=== PATIENT | female | born 1995 | race Caucasian/White ===

== ENCOUNTER → 2017-12-26 12:15 | Observation (INO) ==
--- NOTE | 2017-12-26 10:58 | OB/GYN Progress Note ---
Date of Encounter: 12/26/17 Time of Encounter: 10:55 - Assessment and Plan (1) 34 weeks gestation of Current Visit: Yes Status: Acute UA - Steroids - repeat in 24 hours NST - reactive, no ctx Discharge home with PTL precautions. Follow up in 24 hours for second dose steroids Follow up in office with routine care and PRN POC per consult with Dr Duarte Subjective - Subjective Principal diagnosis: labor evaluation Interval history: Ms Oliveros is a at 34 weeks and 1 day that presents to triage from the office that c/o "feeling her baby's head during a vaginal cleaning" and "increased vaginal discharge". She states positive movement. She denies headache, vision changes, epigastric pain, and vaginal bleeding. Antepartum ROS: movement normal, no vaginal bleeding, no contractions Objective - Vital Signs Vital Signs: Intake and Output 12/25/17 12/26/17 12/26/17 23:59 07:59 15:59 Other: Weight 74.1 kg Patient Weight 12/26/17 23:59 Weight 74.1 kg - Exam FHR: auscultation normal, category 1 (FHTs 155; appropriate for gestation.) Auscultation: bilateral: normal Abdomen: Present: normal appearance, soft, gravid Uterus: Present: normal. Absent: firm, tenderness Cervical dilation: 3-4 Cervix effacement: 70 station: -1
[2017-12-26 11:23] LABS: Bilirubin,Urine Negative (Negative); Blood,Urine Negative (Negative); Clarity,Urine Cloudy (Clear); Color,Urine Yellow (Yellow); Glucose,Urine (UA) Normal (Normal); Ketones,Urine Negative (Negative); Leukocyte Esterase,Urine Moderate (Negative); Nitrite,Urine Negative (Negative); Protein,Urine Negative (Neg-Trace); Specific Gravity,Urine 1.016 (1.010-1.025); Urobilinogen,Urine Normal (Normal)
[2017-12-26 11:25] LABS: Bacteria,Urine None Seen per hpf (None-Few); Hyaline Casts,Urine None Seen per lpf (None-Few); RBC,Urine 0-3 per hpf (0-3); Squamous Epithelial Cell,Urine Many per lpf (None-Few)
[2017-12-26 11:34] LABS: Amphetamine Screen,Urine Negative ng/mL (Cutoff=1000); Barbiturate Screen,Urine Negative ng/mL (Cutoff=200); Benzodiazepines Screen,Urine Negative ng/mL (Cutoff=200); Cannabinoid Screen,Urine Negative ng/mL (Cutoff = 50); Cocaine Screen,Urine Negative ng/mL (Cutoff= 300); Opiate Screen,Urine Negative ng/mL (Cutoff=300); Phencyclidine Screen,Urine Negative ng/mL (Cutoff=25)
[~2017-12-26 12:15] MED LIST: Betamethasone Acet/SodPhos 6 MG/ML MDV IM SCH; Ringers Solution, Lactated 1,000 ML IVC SCH
== END | disposition home or self-care (01) ==
LOC: 1NENULAB
PROVIDERS: ADMIT Obstetrics & Gynecology; ATTEND Obstetrics & Gynecology

== ENCOUNTER 2017-12-29 21:20 | Observation (INO) ==
[2017-12-29] MEDS ORDERED: Ringers Solution, Lactated 1,000 ML ONE (21:31)
[2017-12-29 21:38] LABS: Bilirubin,Urine Negative (Negative); Blood,Urine Negative (Negative); Clarity,Urine Cloudy (Clear); Color,Urine Yellow (Yellow); Glucose,Urine (UA) Normal (Normal); Ketones,Urine Trace mg/dL (Negative); Leukocyte Esterase,Urine Small (Negative); Nitrite,Urine Negative (Negative); PH,Urine 7.5 pH Units (5.0-8.0); Protein,Urine Negative (Neg-Trace); Specific Gravity,Urine 1.017 (1.010-1.025); Urobilinogen,Urine Normal (Normal)
[2017-12-29 21:39] LABS: Bacteria,Urine Few per hpf (None-Few); Hyaline Casts,Urine None Seen per lpf (None-Few); RBC,Urine 0-3 per hpf (0-3); Squamous Epithelial Cell,Urine Many per lpf (None-Few)
--- NOTE | 2017-12-29 21:42 | OB/GYN History & Physical ---
Date of Encounter: 12/29/17 Time of Encounter: 21:36 Assessment and Plan (1) 35 weeks gestation of Current visit: Yes Status: Acute IV fluids Monitor until morning for cervical change If cervix changes to >/= 6cm, admit for labor GBS unknown start clindamycin if admitted for labor POC per consult with Dr Tai (2) labor in second trimester Current visit: Yes Status: Acute Qualifiers: labor delivery status: without delivery Qualified Code(s): O60.02 - labor without delivery, second trimester History of Present Illness Chief complaint: vaginal pressure HPI: Ms. Oliveros is a 22 year old is a at 35 weeks 0 days that presents to triage with c/o increased vaginal pressure and abdominal pain. She states positive movement. She denies headaches, vision changes, epigastric pain , vaginal discharge, and vaginal bleeding. She has a history of one delivery. She has had steroids within the past week. Labs Unknown GBS HIV NR Hep B Neg RPR NR Varicella positive Rubella equivocal Blood Type O+ Past Med Surg Social Fam HX - Past Medical History Medical history: non-contributory - Past Surgical History Surgical History: no surgical history - Social History Smoking Status: Never smoker Smokeless Tobacco Status: No Alcohol use: none Drug use: none - Family History Mother Living Status: Still Living Hx Family Endocrine Disorder: Yes (DM) Obstetrical History - Pregnancies : 3 Para: 2 Term: 1 : 1 Ab's: 0 Livin Medications and Allergies Multivitamin [Flintstones] 1 each PO DAILY 12/29/17 [History] 3 Allergy/AdvReac Type Severity Reaction Status Date / Time Penicillins [PCN] Allergy Rash Verified 03/02/15 18:55 Review of System OB All systems PM: reviewed and no additional remarkable complaints except as stated Exam - Constitutional Constitutional: well developed, well nourished, no acute distress, average body habitus - HEENT HEENT: Normocephaly, Mucus Membranes Moist - Neck Neck exam: full ROM - Lungs Respiratory exam: CTAB - Cardiovascular Cardiovascular exam: RRR, +S1, +S2 - Abdomen Abdomen: Present: bowel sounds normal, gravid, non tender - Extremities Extremities exam: normal capillary refill, normal inspection, radial pulses palpable and symmetrical Deep Tendon Reflex Grade: 2+ Normal - Vulva Vulva: bilateral: normal - Vagina Vagina: Present: normal moisture - Cervix Dilation: 5 Effacement: 80 Station: +1 - Uterus Uterus exam: Present: normal size, normal contour - Anus/Rectum Anus/Rectum: Present: normal perianal skin Results All other labs normal. - VTE Reasons for not Prescribing Prophylaxis: Treatment not Indicated - Low risk for VTE
[2017-12-29 21:59] LABS: Amphetamine Screen,Urine Negative ng/mL (Cutoff=1000); Barbiturate Screen,Urine Negative ng/mL (Cutoff=200); Benzodiazepines Screen,Urine Negative ng/mL (Cutoff=200); Cannabinoid Screen,Urine Negative ng/mL (Cutoff = 50); Cocaine Screen,Urine Negative ng/mL (Cutoff= 300); Opiate Screen,Urine Negative ng/mL (Cutoff=300); Phencyclidine Screen,Urine Negative ng/mL (Cutoff=25)
[2017-12-30] MEDS ORDERED: Ringers Solution, Lactated 1,000 ML ONE (02:46)
--- NOTE | 2017-12-30 07:02 | OB/GYN Progress Note ---
Date of Encounter: 12/30/17 Time of Encounter: 07:00 - Assessment and Plan (1) 35 weeks gestation of Current Visit: Yes Status: Acute Update: no cervical change overnight. Still 580/+1. Encouraged to come immediately with any change in vaginal/rectal pressure and any cramping/abdominal tightening. Keep follow up with Dr Duarte tomorrow. Discharge home with PTL precautions IV fluids Monitor until morning for cervical change If cervix changes to >/= 6cm, admit for labor GBS unknown start clindamycin if admitted for labor POC per consult with Dr Tai Objective - Vital Signs Vital Signs: Intake and Output 12/29/17 12/29/17 12/30/17 15:59 23:59 07:59 Other: Weight 72.4 kg - Labs Labs: Abnormal lab results Urine Clarity Cloudy (Clear) A 12/29/17 21:27 Urine Ketones Trace mg/dL (Negative) H 12/29/17 21:27 Ur Leukocyte Esterase Small (Negative) H 12/29/17 21:27 Urine Microscopic WBC 5-15 per hpf (0-3) H 12/29/17 21:27 Ur Squamous Epith Cells Many per lpf (None-Few) H 12/29/17 21:27 Ur Culture Indicated? NO. (NO) A 12/29/17 21:27
== END 2017-12-30 07:30 | disposition home or self-care (01) ==
LOC: 1NENULAB
PROVIDERS: ADMIT Advanced Practice Midwife; ATTEND Advanced Practice Midwife